=== PATIENT | male | born 2000 | race African-American/Black ===

== ENCOUNTER 2025-01-16 09:03 | Emergency (ER) | payer OTHER, SELFPAY ==
[2025-01-16 09:15] VITALS: BP 144/83; PULSE 108; RESP 20; TEMP 36.2; O2SAT 100
--- OUTSIDE RECORDS SUMMARY | 2025-01-16 09:28 | XMS_ITS | Clinical Summary ---
Author Organization [facility] Address [address] [place] [address] Care Team Providers Care Gas Fitter Apprentice Name Role Phone Johan De Leon MD Primary Care Provider [phone] [facility],non-owned Affiliates and Associated Physician Practices is amultiple site organization consisting of ambulatory clinics and hospital sitesin [place], [place], [place] and [place]. This disclosure is being madepursuant to the Care Everywhere program and may not contain all information available regarding this patient. Last updated 18.[facility] Allergies No known active allergies Medications * Be aware that medications may not be up to date on this document. Alwaysverify current medications with the patient. 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 Gender Identity Not on file Sexual Orientation Not on file Last Filed Vital Signs Vital Sign Reading Time Taken Comments Blood Pressure 137/80 04/21/2023 1:26 PM CDT Pulse 83 04/21/2023 1:26 PM CDT Temperature 36.8 C (98.2 F) 04/21/2023 1:26 PM CDT Respiratory Rate - - Oxygen Saturation 97% 04/21/2023 1:26 PM CDT Inhaled Oxygen Concentration - - Weight 108.9 kg (240 lb) 04/21/2023 1:26 PM CDT Height 177.8 cm (5' 10 ) 04/21/2023 1:26 PM CDT Body Mass Index 34.44 04/21/2023 1:26 PM CDT Plan of Treatment Health Maintenance Due Date Last Done Comments HIV SCREENING 2013 HPV VACCINE (1 - Male 3-dose series) 2013 HEPATITIS C SCREENING 05/05/2016 DTAP/TDAP/TD VACCINES (1 - Tdap) 2017 HEPATITIS B VACCINE (1 of 3 - 19+ 3-dose series) 2017 COVID-19 VACCINE (1 - 2023-2 5 season) 2024 DEPRESSION SCREENING 09/13/2024 INFLUENZA VACCINE (Season Ended) 2025 08/23/2017, 06/30/2011, 07/03/2009 ZOSTER VACCINE (1 of 2) 2048 HIB VACCINE Aged Out No longer eligi ble based on patient's age to complete this topic MENINGOCOCCAL (Group B) VACCINE SHARED DECISION-MAKING Aged Out No longer eligible based on patient's age to complete this topic MENINGOCOCCAL GROUPS A/C/Y/W VACCINE Aged Out No longer eligible b ased on patient's age to complete this topic PNEUMOCOCCAL VACCINE Aged Out No long er eligible based on patient's age to complete this topic Insurance [facility] [place] [address] Care Teams Gas Fitter Apprentice Relationship Specialty Start Date End Date Johan De Leon MD [address] [id number] PCP - General Family Medicine 04/21/23
--- OUTSIDE RECORDS SUMMARY | 2025-01-16 09:28 | XMS_ITS | Clinical Summary ---
Author Organization [facility] Address [address] [place] [address] Phone Care Team Providers Care Inventory Manager Name Role Phone Roberto Huber DEVELOPMENT SPEC, TANK TRUCK LOADER Unavailable + [phone] Dayna Hurtado DEVELOPMENT SPEC, TANK TRUCK LOADER Primary Care Provider [phone]- [phone] Allergies No known active allergies Medications No known medications Active Problems No known active problems Immunizations Immunization Administration Dates Next Due DTAP VACCINE 05/30/2002, 9,1998,09/09,1998 Hepatitis A Vaccine, Pediatric/adolescent, 2 Dose Schedule 08/12/2005 Hepatitis A, Pediatric, Unsp ecified Formulation 11/11/2007 Hepatitis B Vaccine, Pediatric/adolescent 1998,1998,1998 Hib Vaccine,unspecified Formulation 09/1998,07/04/1999,1998,09/09,1998 Human Papillomavirus Vaccine (HPV), quadrivalent 09/14/2013,06/30/2011,05/08/2010 Inactivated Polio Vaccine 05/30/2002,1998 Influenza Vaccine 06/30/2011,07/03/2009 Influenza Vaccine, Quadrivalent, PF 08/23/2017 Influenza Virus Vaccine, Whole Virus 08/24/2006, 09/23/2005,08/12/2005 Influenza, Seasonal, Injecta ble, Undefined 08/19/2012,07/29/2010 MMR Vaccine 05/30/2002,05/14/1999 Meningococcal Vaccine 06/05/2009 OPV 1998,1998 TDAP Vaccine 04/12/2023,06/05/2009 Varicella Vaccine Live 06/05/2009,05/14/1999 Family History Medical History Relation Name Comments No Known Problems Brother Diabetes Father No Known Problems Maternal Aunt No Known Problems Maternal Grandfather No Known Problems Maternal Grandmother No Known Problems Maternal Uncle No Known Problems Mother No Known Problems Other No Known Problems Paternal Aunt No Known Problems Paternal Grandfather No Known Problems Paternal Grandmother No Known Problems Paternal Uncle No Known Problems Sister Relation Name Status Comments Brother Father Maternal Aunt Maternal Grandfather Maternal Grandmother Maternal Uncle Mother Alive Other Paternal Aunt Paternal Grandfather Paternal Grandmother Paternal Uncle Sister Social History Tobacco Use Types Packs/Day Years Used Date Smoking Tobacco: Never Smokeless Tobacco: Never Tobacco Cessation:Counseling Given: No Alcohol Use Standard Drinks/Week Comments Yes 2 (1 standard drink = 0.6 oz pur e alcohol) 2-3 times a month PHQ-2 Answer Date Recorded Total Score - Questions 1-9 0 05/14 Education Answer Date Recorded What is the highest level of school you have completed or the highest degree you have received? GED or equivalent Sexually Active Control Partners Comments Yes None Female Sex and Gender Information Value Date Recorded Sex Assigned at Not on file Legal Sex Male 7:22 PM CDT Gender Identity Not on file Sexual Orientation Not on file Last Filed Vital Signs Vital Sign Reading Time Taken Comments Blood Pressure 110/78 05/23/2024 11:02 AM CDT Pulse 103 05/23/2024 11:02 AM CDT Temperature 37.2 C (98.9 F) 05/23/2024 11:02 AM CDT Respiratory Rate 18 05/23/2024 11:02 AM CDT Oxygen Saturation 98% 05/23/2024 11:02 AM CDT Inhaled Oxygen Concentration - - Weight 103.4 kg (228 lb) 05/23/2024 11:02 AM CDT Height 177.8 cm (5' 10 ) 05/23/2024 11:02 AM CDT Body Mass Index 32.71 05/23/2024 11:02 AM CDT Plan of Treatment Health Maintenance Due Date Last Done Comments Hepatitis C Virus (HCV) Screening 1998 Influenza Immunization (#1) 05/14/202408/13, 08/19/2012, 06/30/2011, Additional history exists SARS-COV-2 Immunization ( - season) 2024 10/06/2021 DTaP/Tdap/Td Immunization (8 - Td or Tdap) 04/12/2033 04/12/2023, 06/05/2009, 05/30/2002, Additional history exists Respiratory Syncytial Virus (RSV) Immunization (Adult) (1 - 1-dose 75+ series) 2073 Hepatitis B Immunization Completed 999, 1998, 1998 Meningococcal Immunization (ACWY) Aged Out 06/05/2009 No longer eligible based on patient's age to complete this topic Human Papillomavirus (HPV) Immunization Completed 09/14/2013, 06/30/2011, 05/08/2010 Pneumococcal Immunization Combined Aged Out No longer eligible based on patient's age to complete this topic Rotavirus Immunization Aged Out No lo nger eligible based on patient's age to complete this topic Insurance [facility] Care Teams Inventory Manager Relationship Specialty Start Date End Date Dayna Hurtado APRN, TANK TRUCK LOADER [id number] [place] [address] PCP - General Certified Nurse Practitioner 05/23/24 Roberto Huber APRN, TANK TRUCK LOADER [address] [place] [address] Nurse Practitioner Advanced Practice Nurse 12/22/22
[2025-01-16 09:36] LABS: EDSTREPNEGPOS1 Positive (Negative); EDUAAPPEAR Clear; EDUABILI 1+ (Negative); EDUABLOOD Trace (Negative); EDUACOLOR1 Yellow; EDUAGLUCOSE Negative (Negative); EDUAKETONE Negative (Negative); EDUALEUKO Negative (Negative); EDUANITRATE Negative (Negative); EDUAPH 6.5; EDUAPROTEIN 1+ (Negative); EDUAUROBILI 0.2
[2025-01-16 09:42] LABS: EDCOVIDSCREEN Negative (Negative); EDINFLUASCREEN Negative (Negative); EDINFLUBSCREEN Negative (Negative)
--- NOTE | 2025-01-16 10:00 | ED_ITS ---
HPI - General Adult General Chief complaint: Upper Respiratory Infection Stated complaint: Sore Throat/Nasal Congestion/Headache Source: patient Mode of arrival: ambulatory Limitations: no limitations History of Present Illness HPI narrative: Pt presents for evaluation of multiple symptoms. He indicates three days ago developed fever, chills, sore throat, body aches, headache, nausea, cough, and mild shortness of breath. No recent sick contacts to his knowledge. He tried taking aleve for his symptoms. No underlying medical problems. He also reports urinary frequency without dysuria, urethral discharge or other urinary symptoms. He is sexually active with one female partner, never using condoms. She is not having any symptoms consistent with STI. Related Data Allergies Allergy/AdvReac Type Severity Reaction Status Date / Time No Known Allergies Allergy Verified 01/16/25 09:33 Review of Systems Review of Systems: CONSTITUTIONAL: Reports fever and chills. EYES: Denies visual changes, redness, or discharge. ENT: Reports sore throat. CARDIOVASCULAR: Denies chest pain, palpitations, or edema. RESPIRATORY:Reports cough and mild SOB GASTROINTESTINAL: Reports nausea. Denies abdominal pain, vomiting, or diarrhea. GENITOURINARY: Denies dysuria or hematuria. SKIN: Denies rash or itching. MUSCULOSKELETAL: Reports generalized body aches. NEUROLOGIC: Reports headache. Denies numbness, dizziness, or weakness. PSYCHIATRIC: Denies anxiety or depression. PMFSH Past Medical History Medical History No pertinent past medical history Surgical History Surgical History No pertinent past surgical history Family History Family History Mother Family history non-contributory Social History Social History Substance use: current Substance use type: marijuana Gender identity (if verbalized by the patient): Male Spiritual care concerns: No Exam Narrative: GENERAL: Well-appearing, well-nourished, and in no acute distress. HEAD: Normocephalic, atraumatic. EYES: PERRLA and EOMI. ENT: Nares clear, no rhinorrhea or epistaxis. Mucous membranes moist. Oropharynx without tonsillar hypertrophy exudate or other lesions. Bilateral TMs pearly saenz nonbulging NECK: Supple. No adenopathy or masses. No carotid bruits or JVD CHEST: Clear to auscultation. No respiratory distress. No wheezes rales or rhonchi HEART: Regular rate and rhythm. No murmur heard. Normal peripheral pulses. ABDOMEN: Soft, nontender, nondistended, normal active bowel sounds. EXTREMITIES: Normal range of motion. No edema. SKIN: Warm, dry, no rash. NEURO: No focal deficits. Alert and oriented x3. PSYCH: Normal mood and affect. Course Course Emergency Course: This is a 24-year-old male who presented for evaluation of sick symptoms. COVID and influenza negative. Strep positive. Will treat with amoxicillin. In terms of his urinary symptoms, there is no evidence of infection on dipstick today. Will send urine for gonorrhea, chlamydia, Trichomonas. Follow up with primary provider. Go to the ER for worsening symptoms. Patient in agreement with plan of care. Level of Care: Express Care Visit Vital Signs Vital signs: Vital Signs Temperature 36.2 C L 01/16/25 09:15 Pulse Rate 108 H 01/16/25 09:15 Respiratory Rate 01/16/25 09:15 Blood Pressure 144/83 H 01/16/25 09:15 Pulse Oximetry 01/16/25 09:15 Oxygen Delivery Room Air 01/16/25 09:15 Temperature 36.2 C L 01/16/25 09:15 Pulse Rate 108 H 01/16/25 09:15 Respiratory Rate 01/16/25 09:15 Blood Pressure 144/83 H 01/16/25 09:15 Pulse Oximetry 01/16/25 09:15 Oxygen Delivery Room Air 01/16/25 09:15 Medical Decision Making Vital Signs Vital Signs: Vital Signs Temperature 36.2 C L 01/16/25 09:15 Pulse Rate 108 H 01/16/25 09:15 Respiratory Rate 01/16/25 09:15 Blood Pressure 144/83 H 01/16/25 09:15 Pulse Oximetry 01/16/25 09:15 Oxygen Delivery Room Air 01/16/25 09:15 Temperature 36.2 C L 01/16/25 09:15 Pulse Rate 108 H 01/16/25 09:15 Respiratory Rate 20 01/16/25 09:15 Blood Pressure 144/83 H 01/16/25 09:15 Pulse Oximetry 100 01/16/25 09:15 Oxygen Delivery Room Air 01/16/25 09:15 Lab Data Labs: Lab Results 01/16/25 01/16/25 Range/Units 09:34 09:40 POC Urine Color Yellow POC Urine Clarity Clear POC Urine pH 6.5 POC Ur Specif [place] 1.030 POC Urine Protein 1+ (Negative) POC Ur Glucose (UA) Negative (Negative) POC Urine Ketones Negative (Negative) POC Urine Blood Trace (Negative) POC Urine Nitrite Negative (Negative) POC Urine Bilirubin 1+ (Negative) POC Urine Urobilinogen 0.2 POC U Leukocyte Esteras Negative (Negative) POC Influenza A Ag Negative (Negative) POC Influenza B Ag Negative (Negative) POC SARS CoV-2 Ag Negative (Negative) POC Grp A Strep Screen Positive (Negative) Discharge Plan Discharge Clinical Impression: Strep throat, Urinary frequency Patient Disposition: Home Condition: Stable Instructions: Antibiotic Form, Strep Throat (DC), Urinary Urgency and Frequency (DC) Patient Language: Montserrat[place] Prescriptions: New amoxicillin 500 mg tablet 500 mg PO Q12H Qty: 20 0RF Follow-up/Referrals: William Baer MD [Physician] - Stand Alone Forms: Work/School Release IP Time of Disposition: 09:57
[2025-01-16 20:52] LABS: Trichomonas Vag PCR NOT DETECTED (NOT DETECTE)
[2025-01-16 21:15] LABS: Chlamydia trachomatis NOT DETECTED (NOT DETECTE); Neisseria gonorrhoeae PCR NOT DETECTED (NOT DETECTE)
== END 2025-01-16 10:07 | disposition home or self-care (01) ==
PROVIDERS: Emergency Provider Nurse Practitioner
DX: J02.0 Streptococcal pharyngitis (principal); R35.0 Frequency of micturition; Z20.822 Contact with and (suspected) exposure to COVID-19; Z11.3 Encounter for screening for infections with a predominantly sexual mode of transmission
CPT/HCPCS: 81003; 87426; 87491; 87591; 87661; 87804; 87880; 99213; G0463